=== PATIENT | female | born 1950 | race Caucasian/White ===

== ENCOUNTER → 2016-07-27 | Outpatient (CLI) | payer OTHER, BC ==
--- NOTE | 2016-07-28 08:24 | DX ---
DEXA Bone Densitometry Technique: DEXA scan was performed on [employer] W Bone Densitometer Indication: Osteopenia Comparator Study: May 29, 2013 Results: Lumbar Spine BMD: 1.057 T-score: 0.1 Prior BMD: 1.061 % change: -0.3% Total Hip (Right) BMD: 0.764 T-score: -1.5 Femoral Neck (Right) BMD: 0.615 T-score: -2.1 Total Hip (Left) BMD: 0.837 T-score: -0.9 Prior BMD: 0.883 % change: -5.1% Femoral Neck (Left) BMD: 0.677 T-score: -1.5 CONCLUSION: Osteopenia ADDITIONAL COMMENTS: In comparison to the previous study from May 2013 there is been a decrease in bone mineral densi ty of the total left hip however the scan types are dissimilar. By FRAX calculation, the estimated 10 year probability of a major osteoporotic fracture is 10% and es timated 10 year probability of hip fracture is 1.6%. Consider repeating the study in 2 years or as cl inically indicated. NOTE: The risk of osteoporotic fractures increases approximately twofold for each 1.0 SD decrease in T-score. The T-score represents the standard deviations from a young normal, same sex, reference po pulation. Low bone density is not the only risk factor for fracture. Clinical factors to consider include fall risk, previous osteoporotic fractures, family history of fractures, smoking, and low body weight. Patients who have an unexpectedly low BMD may need to be evaluated for secondary causes of low bone m ineral density. In comparing the present study to a prior study, lack of a significant increase or decrease in BMD ma y signify efficacy of the patient's present treatment. Bone mineral density measurements performed with densitometers produced by different manufacturers ar e not comparable. For the most reproducible BMD measurement, subsequent exams should be performed on the same densitometer.
== END ==
LOC: BMCIMAGING 11:14
PROVIDERS: ATTEND Family Medicine
DX: M85.80 Other specified disorders of bone density and structure, unspecified site (principal)

== ENCOUNTER 2018-07-23 10:06 | Emergency (ER) | payer OTHER, BC ==
--- NOTE | 2018-07-23 10:29 | EDPHY ---
H & P Stated Complaint: periodontal surg now with redness/swelling under chin Time Seen by Provider: 07/23/18 10:16 HPI/ROS: CHIEF COMPLAINT: Submandibular erythema and swelling HISTORY OF PRESENT ILLNESS: The patient presents the emergency department with submandibular erythema and swelling. The patient's symptoms have developed over the past day. She had periodontal surgery done earlier in May. She developed some symptoms of erythema last week and was started on amoxicillin by her compensation and hris analyst. The patient noted markedly increased swelling today. She initially presented to urgent care and was referred immediately to the ED. The patient denies trismus. She does have moderate pain to palpation in the soft tissues in the submandibular region. She denies any headache, neck stiffness or acute neurologic symptoms. REVIEW OF SYSTEMS: A comprehensive 10 point review of systems is otherwise negative aside from elements mentioned in the history of present illness. Source: Patient Exam Limitations: No limitations - Personal History Current Tetanus Diphtheria and Acellular Pertussis (TDAP): Unsure - Medical/Surgical History Hx Asthma: No Hx Chronic Respiratory Disease: No Hx Diabetes: No Hx Cardiac Disease: No Hx Renal Disease: No Hx Cirrhosis: No Hx Alcoholism: No Hx HIV/AIDS: No Hx Splenectomy or Spleen Trauma: No Other PMH: hypothyroid - Social History Smoking Status: Never smoked - Physical Exam Exam: General Appearance: Alert, no distress Eyes: Pupils equal and round no pallor or injection ENT, Mouth: Market submandibular swelling, no trismus, erythema noted to the submandibular soft tissues Respiratory: There are no retractions, lungs are clear to auscultation Cardiovascular: Regular rate and rhythm Gastrointestinal: Abdomen is soft and nontender, no masses, bowel sounds normal Neurological: A&O, normal motor function, normal sensory exam, normal cranial nerves Skin: Warm and dry, no rashes Musculoskeletal: Neck is supple nontender Extremities: symmetrical, full range of motion Psychiatric: Patient is oriented X 3, there is no agitation Constitutional: Initial Vital Signs Temperature (C) 36.9 C 07/23/18 10:12 Heart Rate 86 07/23/18 10:12 Respiratory Rate 16 07/23/18 10:12 Blood Pressure 180/99 H 07/23/18 10:12 O2 Sat (%) 95 07/23/18 10:12 O2 Delivery Mode Room Air Allergies/Adverse Reactions: codeine Allergy (Mild, Verified 07/23/18 11:22) Other-Enter Comments Home Medications: Medication Instructions Recorded Acetaminophen [Tylenol ES 500 mg 500 mg PO BID PRN 07/23/18 (*)] Amoxicillin Trihydrate 500 mg PO TID 07/23/18 [Amoxicillin] Amoxicillin/Clavulanate Pot 875 mg PO BID #20 tab 07/23/18 [Augmentin 875 mg tablet] Hydrocodone/APAP 5/325 [[employer] 1 - 2 each PO Q6 PRN #20 tab 07/23/18 5/325] Ibuprofen [Motrin (*)] 600 mg PO BID PRN 07/23/18 Nature-Throid 32.5mg Tabs 48.75 mg PO DAILY 07/23/18 Medical Decision Making - Diagnostics Imaging Results: Imaging Impressions Neck CT 07/23/18 10:49 Impression: 1. Left sublingual/submental 3.6 x 2.9 x 3.8 cm abscess inferior to the left genioglossus and hypoglossus muscles. 2. Left thyroid mass measuring 2.7 cm for which follow-up ultrasound FNA biopsy is recommended. Findings and recommendations discussed with Emergency Department physician, Dr. True Spann at 1150 hours on July 23, 2018. Final report concurs with initial preliminary interpretation. ED Course/Re-evaluation: Patient presents to the ED with submandibular swelling. She has had recent dental work. She has been on amoxicillin for past 4 days. Patient was noted to have fairly significant soft tissue swelling and tenderness on exam. She was protecting her airway. She does not have trismus. The patient had an IV established. She received 600 mg of clindamycin. She received 10 mg of IV Decadron. The patient was taken for a stat CT scan of the neck soft tissues which demonstrates a large submental abscess. Consultation was made with ENT at 11:[address] Kebede who will evaluate the patient in the emergency department. 1:30 p.m.: Patient is undergoing in I and D in the emergency department by Dr. Kebede. 2:00 p.m.: The patient will be discharged home and follow up with Dr. Kebede. She will be given Augmentin. Differential Diagnosis: Differential diagnosis considered includes submandibular abscess, submental abscess, Dionicio's angina, neck cellulitis - Data Points Laboratory Results: Laboratory Results 07/23/18 10:44 07/23/18 10:44 07/23/18 07/23/18 07/23/18 10:54 10:44 10:44 WBC 8.68 10^3/uL 10^3/uL (3.80-9.50) RBC 4.27 10^6/uL 10^6/uL (4.18-5.33) Hgb 13.3 g/dL g/dL (12.6-16.3) POC Hgb 13.9 gm/dL gm/dL (12.6-16.3) Hct 40.2 % % (38.0-47.0) POC Hct 41 % % (38-47) MCV 94.1 fL fL (81.5-99.8) MCH 31.1 pg pg (27.9-34.1) MCHC 33.1 g/dL g/dL (32.4-36.7) RDW 12.6 % % (11.5-15.2) Plt Count 204 10^3/uL 10^3/uL (150-400) MPV 10.0 fL fL (8.7-11.7) Neut % (Auto) 81.8 % H % (39.3-74.2) Lymph % (Auto) 8.8 % L % (15.0-45.0) [place] % (Auto) 7.3 % % (4.5-13.0) Eos % (Auto) 1.2 % % (0.6-7.6) Baso % (Auto) 0.6 % % (0.3-1.7) Nucleat RBC Rel Count 0.0 % % (0.0-0.2) Absolute Neuts (auto) 7.11 10^3/uL H 10^3/uL (1.70-6.50) Absolute Lymphs (auto) 0.76 10^3/uL L 10^3/uL (1.00-3.00) Absolute Monos (auto) 0.63 10^3/uL 10^3/uL (0.30-0.80) Absolute Eos (auto) 0.10 10^3/uL 10^3/uL (0.03-0.40) Absolute Basos (auto) 0.05 10^3/uL 10^3/uL (0.02-0.10) Absolute Nucleated RBC 0.00 10^3/uL 10^3/uL (0-0.01) Immature Gran % 0.3 % % (0.0-1.1) Immature Gran # 0.03 10^3/uL 10^3/uL (0.00-0.10) POC Sodium 142 mEq/L mEq/L (135-145) Sodium 139 mEq/L mEq/L (135-145) POC Potassium 3.8 mEq/L mEq/L (3.3-5.0) Potassium 4.0 mEq/L mEq/L (3.5-5.2) POC Chloride 106 mEq/L mEq/L (97-110) Chloride 107 mEq/L mEq/L (97-110) Carbon Dioxide 24 mEq/l mEq/l (22-31) POC Total CO2 23 mEq/L mEq/L (22-31) Anion Gap 8 mEq/L mEq/L (6-14) POC BUN 16 mg/dL mg/dL (7-23) BUN 18 mg/dL mg/dL (7-23) Creatinine 1.2 mg/dL H mg/dL (0.6-1.0) POC Creatinine 1.2 mg/dL H mg/dL (0.6-1.0) Estimated GFR 45 Glucose 127 mg/dL H mg/dL (70-100) POC Glucose 131 mg/dL H mg/dL (70-100) Calcium 9.1 mg/dL mg/dL (8.5-10.4) Medications Given: Discontinued Medications Dexamethasone (Decadron Injection) 10 mg IVP EDNOW ONE Stop: 07/23/18 12:04 Last Admin: 07/23/18 12:07 Dose: 10 mg Fentanyl (Sublimaze) 100 mcg IVP EDNOW ONE Stop: 07/23/18 13:31 Last Admin: 07/23/18 13:33 Dose: 100 mcg Clindamycin Phosphate/Dextrose (Cleocin 600 Mg (Premix)) 50 mls @ 100 mls/hr IV EDNOW ONE PRN Reason: Protocol Stop: 07/23/18 11:02 Last Admin: 07/23/18 10:53 Dose: 50 mls Point of Care Test Results: Chemistry 07/23/18 10:54 POC Sodium 142 mEq/L mEq/L (135-145) POC Potassium 3.8 mEq/L mEq/L (3.3-5.0) POC Chloride 106 mEq/L mEq/L (97-110) POC Total CO2 23 mEq/L mEq/L (22-31) POC BUN 16 mg/dL mg/dL (7-23) POC Creatinine 1.2 mg/dL H mg/dL (0.6-1.0) POC Glucose 131 mg/dL H mg/dL (70-100) ISTAT H&H 07/23/18 10:54 POC Hgb 13.9 gm/dL gm/dL (12.6-16.3) POC Hct 41 % % (38-47) Departure - Departure Disposition: Home, Routine, Self-Care Clinical Impression: Submental abscess Condition: Good Instructions: Abscess (ED) Additional Instructions: 1. Please follow-up with Dr. Kebede as scheduled. 2. Begin Augmentin as directed. 3. Return to the ED for any increasing pain, swelling or other concerns. 4. Vicodin as needed for severe pain. Referrals: Radha Montoya MD [Primary Care Provider] - As per Instructions
[2018-07-23] MEDS ORDERED: CLINDAMYCIN 600 MG/DEXTROSE 50 ML IV ONE (10:33)
[2018-07-23] MEDS ORDERED: IOHEXOL 350mgI/ML (OMNIPAQUE) 150 ML BTL IV ONE (11:05)
[2018-07-23 11:07] LABS: PLATELET COUNT 204 10^3/uL (150-400)
[2018-07-23] MEDS ORDERED: DEXAMETHASONE 10 MG/ML VIAL IVP ONE (12:03)
[2018-07-23] MEDS ORDERED: fentaNYL 100 MCG/2 ML INJ IVP ONE (13:30)
[2018-07-23 14:35] VITALS: BP 158/79
--- NOTE | 2018-07-24 18:51 | GCON ---
[f rep st] CONSULTATION ENT CONSULTATION DATE OF CONSULTATION: 07/23/2018 CHIEF COMPLAINT: Submental/submandibular abscess. HISTORY OF PRESENT ILLNESS: The patient had come to the emergency department for 2 days of swelling and pain. She had periodontal surgery in early May with recent removal of sutures. She was taylor purvi on amoxicillin by her yarn weight and strength tester, but noticed significant increased swelling this morning. She denies difficulty breathing, fever, neck pain, trismus. REVIEW OF SYSTEMS: Negative but for that which is mentioned in the HPI. PAST MEDICAL HISTORY: Noncontributory, but for the periodontal surgery. SOCIAL HISTORY: Nonsmoker. FAMILY HISTORY: Noncontributory. PHYSICAL EXAMINATION: VITAL SIGNS: Blood pressure 180/99, respiratory rate 16, O2 saturation 95% on room air, heart rate 86, temperature 36.9. GENERAL: Alert, interactive, no acute distress. HEAD A ND FACE: Notable submental/submandibular swelling, but otherwise normocephalic and atraumatic. EARS : Bilateral pinnae and canals are nontender, nonerythematous without evidence of otorrhea. EYES: E ALFONSO. NOSE: Normally formed, generally straight. Unremarkable anterior rhinoscopy. ORAL CAVITY: F marbin of mouth is full and tender to palpation. Posterior oropharynx is widely patent with no evidenc e of obstruction. Tongue is unremarkable. NECK: Marked submandibular swelling with mild soft tissue erythema. Tender to palpation. Firm. No other masses or palpable adenopathy. NEURO: Cranial ner ves 2-12 are grossly intact. IMAGING: She had undergone a CT neck in the ER earlier this evening. We reviewed both the radiology read and the images together. She has an almost 4 cm floor of mouth lesion extending through the my lohyoid into submental tissues. The appearance of this is consistent with abscess. At its greatest length, this measures almost 4 cm. I also agree with radiology read that there is a large thyroid ma ss visible on imaging. ASSESSMENT AND PLAN: Submandibular abscess extending from the floor of mouth soft tissues to subment al tissues beneath the mylohyoid. Given its size and concern for resulting possible Dionicio angina, s he would be a good candidate for incision and drainage. We discussed intraoral versus neck/submandib ular incision with the patient and in discussing the risks and benefits of each procedure, she agreed that the submandibular incision would be preferable. The risks, benefits, and alternatives to this procedure were explained at length to the patient who stated she understood and agreed. PROCEDURE: The patient was prepped with alcohol and draped in a sterile fashion. The submandibular tissues at the intended site of incision were injected with 1% lidocaine with 1:100,000 epinephrine. 4 cm posterior to the mentum, a 2 cm horizontal incision was created with a 15 blade. This was exte nded with a combination of blunt dissection and sharp dissection with a 15 blade. Once the subcutane ous tissues were divided, purulent material was expressed. This was cultured. A needle mixer driver was t hen used to further spread tissues and open this up through the mylohyoid to the floor of mouth tissu es. A finger was placed intraorally and as tissues were spread with the needle mixer driver, pressure was placed on the floor of mouth, and a significant amount of pus was expressed from the neck incision. This was repeated multiple times while the floor of mouth and the submandibular and submental tissues were massaged to remove this material. Once there was no more purulent drainage, the site was clean sed with sterile normal saline. An Iodoform ribbon gauze was then placed and used to pack the tissue s superior to the mylohyoid through the submandibular incision. A 2-inch tail was left hanging out o f the incision. Copious gauze was then placed. Overall, the patient tolerated this quite well. PLAN: I recommended the patient be placed on Augmentin. I discussed followup care with the patient and her . He feels comfortable pulling 2 inches of packing out daily and trimming the remaini ng gauze and leaving a tail. She will be taking her antibiotics b.i.d. She understands to follow up this coming Wednesday in my office. They will call for appointment. She understands to follow up levi ner should she have any difficulties with swallowing or breathing or otherwise feels like her symptom s have worsened. At her followup, we will further discuss the thyroid mass seen on CT. /[id number]/MODL
== END 2018-07-23 14:34 | disposition home or self-care (01) ==
PROC: 0W930ZZ Drainage of Oral Cavity and Throat, Open Approach (ICD-10-PCS; principal; 2018-07-23)
DX: K12.2 Cellulitis and abscess of mouth (principal); E04.1 Nontoxic single thyroid nodule; E03.9 Hypothyroidism, unspecified
CPT/HCPCS: 41016; 70491; 96374; 96375; 99285; J1100; J3010; Q9967; 82435-PO; 82565-PO; 82947-PO; 84132-PO; 84295-PO; 84520-PO; 85014-ER

== ENCOUNTER → 2018-12-12 | Outpatient (CLI) | payer OTHER, BC | LOC: BMCIMAGING 09:12 ==